=== PATIENT | female | born 1990 | race Asian ===

== ENCOUNTER 2024-02-24 19:55 | Emergency (ER) | payer BC ==
[~2024-02-24] VITALS: Ht 160 cm; Wt 70.0 kg
[2024-02-24 20:16] VITALS: O2SAT 99
[2024-02-24 20:57] LABS: CLARITY URINE CLOUDY (CLEAR); COLOR URINE YELLOW (YELLOW); GLUCOSE URINE NEGATIVE (NEGATIVE); KETONES URINE NEGATIVE (NEGATIVE); LEUKOCYTE ESTERASE URINE 3+ (NEGATIVE); NITRITE URINE NEGATIVE (NEGATIVE); OCCULT BLOOD URINE 2+ (NEGATIVE); PROTEIN URINE NEGATIVE (NEGATIVE); SPECIFIC GRAVITY URINE 1.009 (1.005-1.030); UROBILINOGEN URINE 0.2 E.U./dL (0.2-1.0)
[2024-02-24] MEDS ORDERED: PHEN-910 MT (20:59)
[2024-02-24] MEDS ORDERED: NITR100C MT (20:59)
[2024-02-24 21:17] LABS: WBC URINE 50-100 /hpf (0-2)
[2024-02-24 21:18] LABS: BACTERIA URINE 3+; SQUAMOUS EPITHELIAL CELL URINE 1+ /lpf (RARE/1+)
[2024-02-24 21:20] VITALS: BP 118/70; PULSE 86; RESP 12; TEMP 98.8
[2024-02-24] MEDS ORDERED: NITROFURANTOIN MACROCRYSTAL 25MG CAPSULE PO ONE (21:30)
[2024-02-24] MEDS: NITROFURANTOIN 100MG M/M CAPSULE PO NR (21:32)
== END 2024-02-24 21:22 | disposition home or self-care (01) ==
LOC: ER 19:55
DX: N39.0 Urinary tract infection, site not specified (principal)
CPT/HCPCS: 81003; 81025; 99283